=== PATIENT | female | born 1955 | race Caucasian/White ===

== ENCOUNTER 2018-08-10 17:06 | Inpatient (IN) | payer OTHER ==
[~2018-08-10] VITALS: Ht 167.6 cm; Wt 54.4 kg
[2018-08-10] MEDS ORDERED: SODIUM CHLORIDE FLUSH 10ML SYR IVF ONE (17:30)
[2018-08-10] MEDS ORDERED: NITROGLYCERIN SINGLE TAB 0.4 MG SL ONE (17:47)
[2018-08-10 17:50] LABS: BASOPHILS # (AUTO) 0.03 x10^3/uL (0-0.1); BASOPHILS % (AUTO) 1 % (0-1); EOSINOPHILS # (AUTO) 0.02 x10^3/uL (0-0.4); EOSINOPHILS % (AUTO) 0 % (1-7); LYMPHOCYTES # (AUTO) 0.89 x10^3/uL (1-3.4); LYMPHOCYTES % (AUTO) 16 % (22-44); MD NO; MEAN CORPUSCULAR HEMOGLOBIN 30.1 pg (27.0-34.8); MEAN CORPUSCULAR HGB CONC 33.5 g/dL (32.4-35.8); MEAN CORPUSCULAR VOLUME 89.8 fL (80-100); MEAN PLATELET VOLUME 7.5 fL (7.4-10.4); MONOCYTES # (AUTO) 0.38 x10^3/uL (0.2-0.8); MONOCYTES % (AUTO) 7 % (2-9); NEUTROPHILS # (AUTO) 4.16 x10^3/uL (1.8-6.8); NEUTROPHILS % (AUTO) 76 % (42-75); PLATELET COUNT 317 x10^3/uL (130-400); RED BLOOD COUNT 5.18 x10^6/uL (3.82-5.3); RED CELL DISTRIBUTION WIDTH 13.7 % (9.6-15.2)
[2018-08-10] MEDS: NITROGLYCERIN SINGLE TAB 0.4 MG SL PRN ×2 (17:51→17:58)
[2018-08-10 17:59] LABS: ALANINE AMINOTRANSFERASE 26 U/L (12-78); ALBUMIN 4.4 g/dL (3.4-5.0); ANION GAP 8 mmol/L (5-15); CALCIUM 9.1 mg/dL (8.5-10.1); CHLORIDE 108 mmol/L (98-107); CREATININE 0.79 mg/dL (0.55-1.02)
[2018-08-10] MEDS ORDERED: ASPIRIN 81 MG TABLET CHEW PO ONE (18:00)
[2018-08-10] MEDS ORDERED: MECLIZINE CHEWABLE 25 MG TAB PO ONE (18:00)
[2018-08-10 18:03] LABS: ALKALINE PHOSPHATASE 50 U/L (45-117); BILIRUBIN,TOTAL 0.5 mg/dL (0.2-1.0); TOTAL PROTEIN 8.1 g/dL (6.4-8.2); TROPONIN I 0.018 ng/mL (0.000-0.045)
[2018-08-10] MEDS ORDERED: MECLIZINE CHEWABLE 25 MG TAB ONE (18:03)
[2018-08-10] MEDS ORDERED: ASPIRIN 81 MG TABLET CHEW ONE (18:04)
[2018-08-10] MEDS ORDERED: PROP10TA PO (19:58)
[2018-08-10] MEDS ORDERED: SODIUM CHLORIDE FLUSH 10ML SYR IVF PRN (20:00)
[2018-08-10] MEDS ORDERED: NITROGLYCERIN 0.4 MG/SPRAY SL PRN (20:30)
[2018-08-10] MEDS ORDERED: BISACODYL 10 MG SUPP PR PRN (20:30)
[2018-08-10] MEDS ORDERED: BACLOFEN 10 MG TABLET PO PRN (20:30)
[2018-08-10] MEDS ORDERED: ENOXAPARIN 40 MG/0.4 ML SQ SCH (20:30)
[2018-08-10] MEDS ORDERED: LABETALOL 5MG/ML, 20ML IVPush PRN (20:30)
[2018-08-10] MEDS ORDERED: ACETAMINOPHEN 325 MG TABLET PO PRN (20:30)
[2018-08-10] MEDS ORDERED: NITROGLYCERIN 0.4 MG BOTTLE (25 TABS) SL PRN (20:30)
[2018-08-10] MEDS ORDERED: BUTALB/APAP/CAFFEINE 50MG/325MG/40MG PO PRN (20:30)
[2018-08-10] MEDS ORDERED: KETOROLAC 30 MG/1 ML IM PRN (20:30)
[2018-08-10] MEDS ORDERED: morphine SULFATE 10 MG/ML, 1ML IV PRN (20:30)
[2018-08-10] MEDS ORDERED: morphine SULFATE 10 MG/ML, 1ML IVPush PRN (20:30)
[2018-08-10] MEDS ORDERED: SODIUM CHLORIDE FLUSH 10ML SYR IVF SCH (21:00)
[2018-08-10 21:03] LABS: CHOLESTEROL, TOTAL 221 mg/dL (140-239); TRIGLYCERIDES 44 mg/dL (50-200); VLDL CHOLESTEROL 9 mg/dL (0-25)
[2018-08-10 21:05] VITALS: BP 167/95
[2018-08-10 21:06] LABS: CHOL/HDL RATIO 2.2; HDL CHOL % 46 % (28-40); HDL CHOLESTEROL (DIRECT) 102 mg/dL (40-60); LDL CHOLESTEROL,CALCULATED 110 mg/dL (54-169); LDL/HDL RATIO 1.1 (0.5-3.0); TROPONIN I 0.042 ng/mL (0.000-0.045)
[2018-08-10 22:46] VITALS: BP 167/95
[2018-08-10] MEDS ORDERED: THYR30TA PO (22:57)
[2018-08-10] MEDS ORDERED: ZOLP-413 PO (22:57)
[2018-08-10 23:53] LABS: TROPONIN I 0.033 ng/mL (0.000-0.045)
[2018-08-10 23:56] VITALS: BP 179/105
[2018-08-11] MEDS ORDERED: ZOLPIDEM 5MG TABLET PO PRN
[2018-08-11] MEDS ORDERED: POTASSIUM CHLORIDE 20 MEQ TAB.ER.PRT PO ONE
[2018-08-11 01:16] VITALS: BP 152/89
[2018-08-11 02:14] VITALS: BP 122/81
[2018-08-11 05:37] LABS: ANION GAP 8 mmol/L (5-15); CALCIUM 8.5 mg/dL (8.5-10.1); CHLORIDE 111 mmol/L (98-107)
[2018-08-11 05:39] LABS: CREATININE 0.63 mg/dL (0.55-1.02)
[2018-08-11] MEDS ORDERED: THYROID 30 MG TABLET PO SCH (06:00)
[2018-08-11] MEDS ORDERED: ASPIRIN 325 MG TABLET EC PO SCH (06:00)
[2018-08-11 06:45] VITALS: BP 130/87
[2018-08-11] MEDS ORDERED: REGADENOSON 0.4 MG/5 ML SYRINGE ONE (07:57)
[2018-08-11 12:43] VITALS: BP 122/82
[2018-08-11] MEDS ORDERED: METO25TA91 PO (15:00)
== END 2018-08-11 16:43 | disposition home or self-care (01) | DRG 305 ==
LOC: ED 20:21 → EDIP 20:23 → 5SO 20:57 → DCLOUNGE 08-11 16:34
PROVIDERS: ADMIT Internal Medicine; ATTEND Internal Medicine
DX: I16.9 Hypertensive crisis, unspecified (principal); I47.2 Ventricular tachycardia; I10 Essential (primary) hypertension; E87.6 Hypokalemia; E03.9 Hypothyroidism, unspecified; H93.19 Tinnitus, unspecified ear; M85.80 Other specified disorders of bone density and structure, unspecified site; F51.04 Psychophysiologic insomnia; Z82.49 Family history of ischemic heart disease and other diseases of the circulatory system
CPT/HCPCS: 36415; 70450; 71045; 78452; 80048; 80053; 80061; 83735; 83880; 84443; 84484; 85025; 93005; 93017; 93306; G0378; J1650; J2785; A9502; C9898